=== PATIENT | female | born 1980 | race Caucasian/White ===

== ENCOUNTER 2018-05-21 16:46 | Emergency (ER) | payer MEDICAID ==
[~2018-05-21] VITALS: Ht 154.9 cm; Wt 87.6 kg
[2018-05-21] MEDS ORDERED: IBUPROFEN 600 MG TABLET PO ONE (17:30)
[2018-05-21] MEDS ORDERED: ACETAMINOPHEN 325 MG TABLET PO ONE (17:30)
[2018-05-21 17:54] LABS: RAPID INFLUENZA A Negative (Negative); RAPID INFLUENZA B Negative (Negative)
[2018-05-21] MEDS ORDERED: SERT100T5 PO (18:20)
[2018-05-21] MEDS ORDERED: KETOROLAC 30 MG/1 ML ONE (19:26)
[2018-05-21] MEDS ORDERED: HYDROcodone/APAP 5/325 TABLET ONE (19:26)
[2018-05-21] MEDS ORDERED: KETOROLAC 60 MG/2 ML IM ONE (19:30)
[2018-05-21] MEDS ORDERED: HYDROcodone/APAP 5/325 TABLET PO ONE (19:30)
[2018-05-21 19:34] VITALS: BP 134/78
== END 2018-05-21 19:57 | disposition home or self-care (01) ==
LOC: ED 18:28
DX: J15.9 Unspecified bacterial pneumonia (principal); R51 Headache; Z88.0 Allergy status to penicillin
CPT/HCPCS: 71046; 87400; 96372; 99284; J1885

== ENCOUNTER 2020-03-03 09:41 | Emergency (ER) | payer MEDICAID ==
[~2020-03-03] VITALS: Ht 154.9 cm; Wt 75.0 kg
[~2020-03-03 09:41] MED LIST: SERT100T32 PO
[2020-03-03 09:43] VITALS: BP 123/66
[2020-03-03] MEDS ORDERED: ACETAMINOPHEN 500 MG TABLET ONE (10:25)
[2020-03-03] MEDS ORDERED: ACETAMINOPHEN 500 MG TABLET PO ONE (10:30)
--- NOTE | 2020-03-03 10:31 | NUR ---
MEDICATED PER EMAR FOR LEFT ARM PAIN AT 8/10 TO ULTRASOUND AT 1030
--- NOTE | 2020-03-03 10:48 | NUR ---
ECG OBTAINED BY EMT LAB AT BEDSIDE PROVIDER MADE AWARE THAT PATIENT FORGOT TO MENTION "BIG RED BUMP OF MY RIGHT GLUTE" PATIENT EDUCATED ON IMPORTANCE OF SMOKING CESSATION (ESPECIALLY DURING )
[2020-03-03 11:09] LABS: TROPONIN I < 0.015 ng/mL (0.000-0.045)
--- NOTE | 2020-03-03 11:10 | NUR ---
ultrasound at bedside
[2020-03-03] MEDS ORDERED: LIDOCAINE-MPF 1%, 5ML INFIL ONE (12:00)
[2020-03-03] MEDS ORDERED: LIDOCAINE 1%-EPI 1:100K, 20ML ONE (12:28)
--- NOTE | 2020-03-03 12:37 | NUR ---
Provider to bedside to madelin i/d
--- NOTE | 2020-03-03 13:06 | NUR ---
TASK RN: DC EDUCATION PROVIDED, PT DEMONSTRATES UNDERSTANDING. PT AMBULATED STEADILY TO DC WITH RN
== END 2020-03-03 13:08 | disposition home or self-care (01) ==
LOC: ED 10:24
DX: O26.892 Other specified pregnancy related conditions, second trimester (principal); L02.31 Cutaneous abscess of buttock; M25.521 Pain in right elbow; M79.631 Pain in right forearm; Z87.891 Personal history of nicotine dependence; Z3A.15 15 weeks gestation of pregnancy
CPT/HCPCS: 36415; 84484; 93005; 99285